=== PATIENT | female | born 1940 | race Caucasian/White ===

== ENCOUNTER 2021-12-09 07:32 | Day surgery (SDC) | payer MEDICARE ==
[~2021-12-09] VITALS: Ht 172.7 cm; Wt 62.0 kg
[2021-12-09] MEDS ORDERED: LIDOcaine 1%/PF 5ML 10 MG/ML VIAL SQ ONE (07:50)
[2021-12-09 08:00] VITALS: BP 144/75
[2021-12-09] MEDS ORDERED: DIPH25CA83 PO (08:07)
[2021-12-09] MEDS ORDERED: HYDR-3965 PO (08:07)
[2021-12-09] MEDS ORDERED: PROC10TA10 PO (08:07)
[2021-12-09] MEDS ORDERED: LORA10TA65 PO (08:07)
[2021-12-09] MEDS ORDERED: OSC500T PO (08:07)
[2021-12-09] MEDS ORDERED: ONDA-104 PO (08:07)
[2021-12-09] MEDS ORDERED: tylenol PO (08:07)
[2021-12-09] MEDS ORDERED: SENN1TAB33 PO (08:07)
[2021-12-09] MEDS ORDERED: OMEG-79 PO (08:07)
[2021-12-09] MEDS ORDERED: MULT-227 PO (08:07)
[2021-12-09 09:35] VITALS: BP 145/90
[2021-12-09 09:45] VITALS: BP 161/94
[2021-12-09 10:00] VITALS: BP 133/79
[2021-12-09 10:15] VITALS: BP 131/71
== END 2021-12-09 10:30 | disposition home or self-care (01) ==
LOC: SSTAY O 07:32
PROVIDERS: ATTEND Radiology Vascular & Interventional Radiology
DX: J90 Pleural effusion, not elsewhere classified (principal); Z85.118 Personal history of other malignant neoplasm of bronchus and lung; Z88.6 Allergy status to analgesic agent; Z79.899 Other long term (current) drug therapy; Z98.890 Other specified postprocedural states
CPT/HCPCS: 32555; J3490; A4615; C1729

== ENCOUNTER 2021-12-19 08:00 | Day surgery (SDC) | payer MEDICARE ==
[~2021-12-19] VITALS: Ht 172.7 cm; Wt 59.9 kg
[~2021-12-19 08:00] MED LIST: DIPH25CA83 PO; HYDR-3965 PO; LORA10TA65 PO; MULT-227 PO; OMEG-79 PO; ONDA-104 PO; OSC500T PO; PROC10TA10 PO; SENN1TAB33 PO; tylenol PO
[2021-12-19] MEDS ORDERED: LIDOcaine 1% 30ml preserv. free vial SQ STA (08:19)
[2021-12-19 08:23] VITALS: BP 148/93
[2021-12-19] MEDS ORDERED: METO25TA6 PO (08:29)
[2021-12-19 09:55] VITALS: BP 140/67
[2021-12-19 10:00] VITALS: BP 140/78
[2021-12-19 10:15] VITALS: BP 123/61
[2021-12-19 10:30] VITALS: BP 122/70
[2021-12-19 10:45] VITALS: BP 135/76
== END 2021-12-19 11:10 | disposition home or self-care (01) ==
LOC: SSTAY O 08:00
PROVIDERS: ATTEND Radiology Vascular & Interventional Radiology
DX: J90 Pleural effusion, not elsewhere classified (principal); Z85.118 Personal history of other malignant neoplasm of bronchus and lung; Z79.899 Other long term (current) drug therapy; Z98.890 Other specified postprocedural states
CPT/HCPCS: 32555

== ENCOUNTER 2021-12-26 08:07 | Day surgery (SDC) | payer MEDICARE ==
[~2021-12-26] VITALS: Ht 172.7 cm; Wt 57.0 kg
[~2021-12-26 08:07] MED LIST changes: -DIPH25CA83 PO; -LORA10TA65 PO; +METO25TA6 PO; -MULT-227 PO; -OSC500T PO
[2021-12-26 08:25] VITALS: BP 139/85
[2021-12-26] MEDS ORDERED: LIDOcaine 1% 30ml preserv. free vial SQ STA (08:40)
[2021-12-26 09:30] VITALS: BP 146/87
[2021-12-26 09:42] VITALS: BP 140/81
[2021-12-26 10:00] VITALS: BP 141/79
[2021-12-26 10:15] VITALS: BP 146/86
[2021-12-26 10:35] VITALS: BP 152/85
== END 2021-12-26 10:45 | disposition home or self-care (01) ==
LOC: SSTAY O 08:07
PROVIDERS: ATTEND Radiology Vascular & Interventional Radiology
DX: J90 Pleural effusion, not elsewhere classified (principal); Z85.118 Personal history of other malignant neoplasm of bronchus and lung; Z79.899 Other long term (current) drug therapy
CPT/HCPCS: 32555; J3490; A6258

== ENCOUNTER 2022-01-09 08:07 | Day surgery (SDC) | payer MEDICARE ==
[~2022-01-09] VITALS: Ht 172.7 cm; Wt 54.7 kg
[~2022-01-09 08:07] MED LIST changes: +LIDOcaine 1% 30ml preserv. free vial SQ STA
[2022-01-09] MEDS ORDERED: LIDOcaine 1% 30ml preserv. free vial SQ STA (08:21)
[2022-01-09] MEDS ORDERED: albumin 25% 100mL bottle x 1 IV PRN (08:25)
[2022-01-09] MEDS ORDERED: CEPH500C2 PO (08:29)
[2022-01-09] MEDS ORDERED: TRAM1TAB7 PO (08:29)
[2022-01-09 08:30] VITALS: BP 146/84
[2022-01-09 09:05] VITALS: BP 145/85
[2022-01-09 09:10] VITALS: BP 138/73
[2022-01-09 09:25] VITALS: BP 121/68
[2022-01-09 09:40] VITALS: BP 126/67
[2022-01-09 09:55] VITALS: BP 121/67
== END 2022-01-09 10:00 | disposition home or self-care (01) ==
LOC: SSTAY O 08:07
PROVIDERS: ATTEND Radiology Vascular & Interventional Radiology
DX: J90 Pleural effusion, not elsewhere classified (principal); Z85.118 Personal history of other malignant neoplasm of bronchus and lung; Z88.6 Allergy status to analgesic agent; Z79.899 Other long term (current) drug therapy; Z98.890 Other specified postprocedural states
CPT/HCPCS: 32555; J3490; A4620; A6258; J7030

== ENCOUNTER 2022-01-23 08:42 | Day surgery (SDC) | payer MEDICARE ==
[~2022-01-23] VITALS: Ht 172.7 cm; Wt 55.4 kg
[~2022-01-23 08:42] MED LIST changes: +CEPH500C2 PO; -LIDOcaine 1% 30ml preserv. free vial SQ STA; -ONDA-104 PO; +TRAM1TAB7 PO
[2022-01-23 09:12] VITALS: BP 151/89
[2022-01-23] MEDS ORDERED: albumin 25% 100mL bottle x 1 IV PRN (09:15)
[2022-01-23] MEDS ORDERED: GABA300T25 PO (09:21)
[2022-01-23 09:36] VITALS: BP 141/74
[2022-01-23 09:45] VITALS: BP 137/79
[2022-01-23 10:00] VITALS: BP 137/73
[2022-01-23 10:15] VITALS: BP 146/76
[2022-01-23 10:30] VITALS: BP 139/78
== END 2022-01-23 10:40 | disposition home or self-care (01) ==
LOC: SSTAY O 08:42
PROVIDERS: ATTEND Radiology Vascular & Interventional Radiology
DX: J90 Pleural effusion, not elsewhere classified (principal); Z85.118 Personal history of other malignant neoplasm of bronchus and lung
CPT/HCPCS: 32555; C1729

== ENCOUNTER 2022-02-06 08:05 | Day surgery (SDC) | payer MEDICARE ==
[~2022-02-06] VITALS: Ht 172.7 cm; Wt 55.6 kg
[~2022-02-06 08:05] MED LIST changes: -CEPH500C2 PO; +GABA300T25 PO
[2022-02-06] MEDS ORDERED: LIDOcaine 1% 30ml preserv. free vial SQ STA (08:15)
[2022-02-06] MEDS ORDERED: chemotherapy (08:34)
[2022-02-06 08:35] VITALS: BP 138/77
[2022-02-06 09:10] VITALS: BP 137/83
[2022-02-06 09:20] VITALS: BP 163/74
[2022-02-06 09:30] VITALS: BP 140/76
[2022-02-06] MEDS ORDERED: albumin 25% 100mL bottle x 1 IV PRN (09:35)
[2022-02-06 09:45] VITALS: BP 121/75
[2022-02-06 10:00] VITALS: BP 136/79
== END 2022-02-06 10:15 | disposition home or self-care (01) ==
LOC: SSTAY O 08:05
PROVIDERS: ATTEND Radiology Diagnostic Radiology
DX: C34.90 Malignant neoplasm of unspecified part of unspecified bronchus or lung (principal); J91.8 Pleural effusion in other conditions classified elsewhere; Z79.899 Other long term (current) drug therapy; Z98.890 Other specified postprocedural states
CPT/HCPCS: 32555

== ENCOUNTER 2022-02-20 08:04 | Day surgery (SDC) | payer MEDICARE ==
[~2022-02-20] VITALS: Ht 172.7 cm; Wt 55.8 kg
[~2022-02-20 08:04] MED LIST changes: +chemotherapy
[2022-02-20 08:20] VITALS: BP 116/78
[2022-02-20] MEDS ORDERED: albumin 25% 100mL bottle x 1 IV PRN (08:20)
[2022-02-20] MEDS ORDERED: TRAZ-251 PO (08:37)
[2022-02-20] MEDS ORDERED: ONDA-104 PO (08:37)
[2022-02-20] MEDS ORDERED: LIDO28.35 TOP (08:37)
[2022-02-20] MEDS ORDERED: LORA-268 PO (08:37)
[2022-02-20] MEDS ORDERED: LIDOcaine 1% 30ml preserv. free vial SQ STA (08:38)
[2022-02-20 09:45] VITALS: BP 118/84
[2022-02-20 09:50] VITALS: BP 134/66
[2022-02-20 10:05] VITALS: BP 134/83
[2022-02-20 10:20] VITALS: BP 149/82
[2022-02-20 10:35] VITALS: BP 121/73
== END 2022-02-20 10:38 | disposition home or self-care (01) ==
LOC: SSTAY O 08:04
PROVIDERS: ATTEND Radiology Vascular & Interventional Radiology
DX: J90 Pleural effusion, not elsewhere classified (principal); Z79.899 Other long term (current) drug therapy; Z88.6 Allergy status to analgesic agent; Z85.118 Personal history of other malignant neoplasm of bronchus and lung
CPT/HCPCS: 32555; J3490

== ENCOUNTER 2022-03-10 07:38 | Day surgery (SDC) | payer MEDICARE ==
[~2022-03-10] VITALS: Ht 172.7 cm; Wt 57.0 kg
[2022-03-10] VITALS (7 sets, daily range): BP systolic 93–149; BP diastolic 61–101
[~2022-03-10 07:38] MED LIST changes: -HYDR-3965 PO; +LIDO28.35 TOP; +LORA-268 PO; -OMEG-79 PO; +ONDA-104 PO; -SENN1TAB33 PO; +TRAZ-251 PO
[2022-03-10] MEDS ORDERED: LIDOcaine 1% 30ml preserv. free vial SQ STA (08:12)
== END 2022-03-10 09:40 | disposition home or self-care (01) ==
LOC: SSTAY O 07:38
PROVIDERS: ATTEND Radiology Diagnostic Radiology
DX: J90 Pleural effusion, not elsewhere classified (principal); C34.90 Malignant neoplasm of unspecified part of unspecified bronchus or lung; Z88.5 Allergy status to narcotic agent; Z79.899 Other long term (current) drug therapy
CPT/HCPCS: 32555; J3490; C1729

== ENCOUNTER 2022-04-10 08:08 | Day surgery (SDC) | payer MEDICARE ==
[~2022-04-10] VITALS: Ht 172.7 cm; Wt 56.4 kg
[~2022-04-10 08:08] MED LIST changes: -GABA300T25 PO; -LIDO28.35 TOP
[2022-04-10] MEDS ORDERED: LIDOcaine 1% 30ml preserv. free vial SQ STA (08:18)
[2022-04-10 08:43] VITALS: BP 138/86
[2022-04-10 09:26] VITALS: BP 166/75
[2022-04-10 09:30] VITALS: BP 176/61
[2022-04-10 09:45] VITALS: BP 144/69
== END 2022-04-10 10:10 | disposition home or self-care (01) ==
LOC: SSTAY O 08:08
PROVIDERS: ATTEND Radiology Diagnostic Radiology
DX: J90 Pleural effusion, not elsewhere classified (principal); Z85.118 Personal history of other malignant neoplasm of bronchus and lung
CPT/HCPCS: 32555; J3490

== ENCOUNTER 2022-05-01 08:08 | Day surgery (SDC) | payer MEDICARE ==
[~2022-05-01] VITALS: Ht 172.7 cm; Wt 54.5 kg
[~2022-05-01 08:08] MED LIST changes: -chemotherapy
[2022-05-01] MEDS ORDERED: LIDOcaine 1% 30ml preserv. free vial SQ STA (08:26)
[2022-05-01] MEDS ORDERED: albumin 25% 100mL bottle x 1 IV PRN (08:35)
[2022-05-01 08:40] VITALS: BP 152/73
[2022-05-01 09:09] VITALS: BP 168/76
== END 2022-05-01 09:20 | disposition home or self-care (01) ==
LOC: SSTAY O 08:08
PROVIDERS: ATTEND Radiology Vascular & Interventional Radiology
DX: J90 Pleural effusion, not elsewhere classified (principal); Z53.8 Procedure and treatment not carried out for other reasons; C34.90 Malignant neoplasm of unspecified part of unspecified bronchus or lung; Z88.5 Allergy status to narcotic agent; Z79.899 Other long term (current) drug therapy
CPT/HCPCS: 76604

== ENCOUNTER 2022-08-19 07:41 | Day surgery (SDC) | payer MEDICARE ==
[~2022-08-19] VITALS: Ht 172.7 cm; Wt 52.3 kg
[2022-08-19] VITALS (7 sets, daily range): BP systolic 129–170; BP diastolic 75–100
[2022-08-19] MEDS ORDERED: LOSA50TA64 PO (08:17)
[2022-08-19] MEDS ORDERED: LIDOcaine 1%/PF 5ML 10 MG/ML VIAL SQ ONE (08:20)
[2022-08-19] MEDS ORDERED: albumin 25% 100mL bottle x 1 IV PRN (08:20)
[2022-08-19] MEDS ORDERED: ondansetron 4mg rapidly disintigrating tab PO ONE (09:00)
== END 2022-08-19 09:50 | disposition home or self-care (01) ==
LOC: SSTAY O 07:41
PROVIDERS: ATTEND Radiology Vascular & Interventional Radiology
DX: C34.11 Malignant neoplasm of upper lobe, right bronchus or lung (principal); J91.0 Malignant pleural effusion; B02.9 Zoster without complications; Z79.899 Other long term (current) drug therapy; Z98.890 Other specified postprocedural states; Z88.5 Allergy status to narcotic agent
CPT/HCPCS: 32555; J3490

== ENCOUNTER 2022-09-05 06:03 | Day surgery (SDC) | payer MEDICARE ==
[~2022-09-05] VITALS: Ht 172.7 cm; Wt 53.3 kg
[~2022-09-05 06:03] MED LIST changes: +LOSA50TA64 PO
[2022-09-05] MEDS ORDERED: LIDOcaine 1%/PF 5ML 10 MG/ML VIAL SQ ONE (06:10)
[2022-09-05 06:25] VITALS: BP 135/83
[2022-09-05] MEDS ORDERED: albumin 25% 100mL bottle x 1 IV PRN (06:25)
[2022-09-05 08:23] VITALS: BP 186/87
[2022-09-05 08:27] VITALS: BP 144/79
[2022-09-05 08:42] VITALS: BP 178/58
[2022-09-05 08:57] VITALS: BP 169/59
[2022-09-05 09:12] VITALS: BP 155/57
== END 2022-09-05 09:45 | disposition home or self-care (01) ==
LOC: SSTAY O 06:03
PROVIDERS: ATTEND Radiology Vascular & Interventional Radiology
DX: J90 Pleural effusion, not elsewhere classified (principal); Z85.118 Personal history of other malignant neoplasm of bronchus and lung; Z98.890 Other specified postprocedural states; Z88.5 Allergy status to narcotic agent
CPT/HCPCS: 32555; J3490

== ENCOUNTER 2022-09-22 08:18 | Day surgery (SDC) | payer MEDICARE ==
[~2022-09-22] VITALS: Ht 172.7 cm; Wt 54.5 kg
[2022-09-22 09:15] VITALS: BP_SYST 155; BP_SYST 158; BP_DIAS 58; BP_DIAS 98
[2022-09-22 09:30] VITALS: BP 169/100
[2022-09-22 09:45] VITALS: BP 171/80
[2022-09-22 10:16] VITALS: BP 174/99
== END 2022-09-22 10:25 | disposition home or self-care (01) ==
LOC: SSTAY O 08:18
PROVIDERS: ATTEND Radiology Vascular & Interventional Radiology
DX: C34.90 Malignant neoplasm of unspecified part of unspecified bronchus or lung (principal); J91.0 Malignant pleural effusion; Z98.890 Other specified postprocedural states; Z79.899 Other long term (current) drug therapy; Z88.5 Allergy status to narcotic agent
CPT/HCPCS: 32555; C1729; J3490

== ENCOUNTER 2022-10-16 07:48 | Day surgery (SDC) | payer MEDICARE ==
[~2022-10-16] VITALS: Ht 172.7 cm; Wt 55.7 kg
[2022-10-16] MEDS ORDERED: albumin 25% 100mL bottle x 1 IV PRN (08:05)
[2022-10-16 08:20] VITALS: BP 138/63
[2022-10-16 09:35] VITALS: BP 148/89
[2022-10-16 09:45] VITALS: BP 97/44
[2022-10-16 10:00] VITALS: BP 115/59
[2022-10-16 10:15] VITALS: BP 125/57
== END 2022-10-16 10:20 | disposition home or self-care (01) ==
LOC: SSTAY O 07:48
PROVIDERS: ATTEND Radiology Vascular & Interventional Radiology
DX: J90 Pleural effusion, not elsewhere classified (principal); C34.11 Malignant neoplasm of upper lobe, right bronchus or lung; Z98.890 Other specified postprocedural states; Z88.5 Allergy status to narcotic agent; Z79.899 Other long term (current) drug therapy
CPT/HCPCS: 32555; C1729; J3490

== ENCOUNTER 2022-12-08 08:49 | Day surgery (SDC) | payer MEDICARE ==
[~2022-12-08] VITALS: Ht 172.7 cm; Wt 51.8 kg
[~2022-12-08 08:49] MED LIST changes: +AMLO10TA13 PO; +CEPH-585 PO; -LORA-268 PO; +LORA-269 PO; -LOSA50TA64 PO; +METO-467 PO; -METO25TA6 PO; -PROC10TA10 PO; +SODI1TAB2 PO; +TOLV15TA PO; -TRAM1TAB7 PO; +TRAM50TA2 PO
[2022-12-08 09:23] VITALS: BP 148/79; PULSE 69; RESP 16; TEMP 97.1; O2SAT 96
[2022-12-08 09:50] VITALS: RESP 16; O2SAT 96
[2022-12-08 09:56] VITALS: BP 154/79; PULSE 63; RESP 16; O2SAT 99
[2022-12-08 10:10] VITALS: BP 133/67; PULSE 56; RESP 16; O2SAT 100
[2022-12-08 10:25] VITALS: BP 126/72; PULSE 63; RESP 16; O2SAT 99
[2022-12-08 10:40] VITALS: BP 125/66; PULSE 54; RESP 16; O2SAT 100
== END 2022-12-08 11:00 | disposition home or self-care (01) ==
LOC: SSTAY O 08:49
PROVIDERS: ATTEND Radiology Vascular & Interventional Radiology
DX: C34.90 Malignant neoplasm of unspecified part of unspecified bronchus or lung (principal); J91.0 Malignant pleural effusion; Z98.890 Other specified postprocedural states; Z88.5 Allergy status to narcotic agent; Z79.899 Other long term (current) drug therapy
CPT/HCPCS: 32555; C1729; J3490

== ENCOUNTER 2022-12-18 06:31 | Day surgery (SDC) | payer MEDICARE ==
[~2022-12-18] VITALS: Ht 172.7 cm; Wt 51.8 kg
[2022-12-18] VITALS (8 sets, daily range): BP systolic 113–174; BP diastolic 40–84; PULSE 72–89; RESP 16; TEMP 98.9; O2SAT 92–98
[~2022-12-18 06:31] MED LIST changes: -CEPH-585 PO
[2022-12-18] MEDS ORDERED: albumin 25% 100mL bottle x 1 IV PRN (07:00)
[2022-12-18] MEDS ORDERED: MORP100S7 PO (07:04)
== END 2022-12-18 09:35 | disposition home or self-care (01) ==
LOC: SSTAY O 06:31
PROVIDERS: ATTEND Radiology Vascular & Interventional Radiology
DX: C34.90 Malignant neoplasm of unspecified part of unspecified bronchus or lung (principal); J91.0 Malignant pleural effusion; Z98.890 Other specified postprocedural states; Z79.899 Other long term (current) drug therapy; Z88.5 Allergy status to narcotic agent
CPT/HCPCS: 32555; C1769; J3490; A4615